=== PATIENT | male | born 1960 | race Caucasian/White ===

== ENCOUNTER 2018-07-01 12:51 | Emergency (ER) | payer OTHER ==
[~2018-07-01] VITALS: Ht 185.4 cm; Wt 93.0 kg
[2018-07-01 13:22] LABS: HEMATOCRIT 43.8 % (39.0-50.0); HEMOGLOBIN 14.8 g/dl (14.0-18.0); IMMATURE GRANULOCYTES 0.4 % (0.0-5.0); MEAN CELL VOLUME 93.2 fL CALC (80.0-100.0); MEAN CORPUSCULAR HGB 31.5 pG CALC (26.0-32.0); MEAN CORPUSCULAR HGB CONC 33.8 g/L CALC (32.0-36.0); NEUT# 20.36 thou/uL (1.82-7.42); RED BLOOD COUNT 4.7 mill/uL (4.70-6.10); RED CELL DISTRI WIDTH 12.1 % (11.5-15.5)
[2018-07-01] MEDS ORDERED: CENTURY VIT PO (13:31)
[2018-07-01] MEDS ORDERED: ASPIRIN81 MG PO (13:32)
[2018-07-01] MEDS ORDERED: SINGULAIR10 MG PO (13:32)
[2018-07-01] MEDS ORDERED: VITAMIN D400 UNI1 PO (13:32)
[2018-07-01] MEDS ORDERED: OYSTER SHELL PO (13:33)
[2018-07-01] MEDS ORDERED: [UNRECOGNIZED DRUG - OTHER] PO (13:33)
[2018-07-01] MEDS ORDERED: [UNRECOGNIZED DRUG - OTHER] (13:35)
[2018-07-01] MEDS ORDERED: PRAVACHOL20 MG PO (13:39)
[2018-07-01 13:40] LABS: ALBUMIN 4.5 g/dL (3.2-5.0); ALKALINE PHOSPHATASE 82 u/l (38-126); ANION GAP 21 (6-22 (CALC)); BILIRUBIN, TOTAL 0.7 mg/dL (0.0-1.4); BUN 26 mg/dL (9-20); CARBON DIOXIDE 27 mmol/l (22-30); CHLORIDE 97 mmol/l (95-108); CREATININE 0.8 mg/dL (0.7-1.3); LIPASE 138 u/l (23-300); POTASSIUM 4.5 mmol/l (3.5-5.1); SGOT/AST 22 u/l (17-59); SGPT/ALT 29 u/l (21-72); SODIUM 140 mmol/l (137-146); TOTAL PROTEIN 7.3 g/dL (6.3-8.2)
[2018-07-01 14:01] LABS: BUN/CREATININE RATIO 32 (12-20 (CALC)); GFR > 60 ML/MIN (>=60 (CALC)); GFR FOR AFR.AMER. > 60 ML/MIN (>=60 (CALC))
[2018-07-01 16:04] VITALS: BP 159/84
== END 2018-07-01 16:20 | disposition short-term general hospital (02) | DRG 390 ==
LOC: ED 12:51
PROVIDERS: Family Medicine
DX: K56.609 Unspecified intestinal obstruction, unspecified as to partial versus complete obstruction (principal); K63.89 Other specified diseases of intestine; K22.8 Other specified diseases of esophagus
CPT/HCPCS: S0164